=== PATIENT | female | born 1950 | race African-American/Black ===

== ENCOUNTER 2021-11-02 09:01 | Emergency (ER) | payer MEDICARE, BC ==
[~2021-11-02] VITALS: Ht 167.6 cm; Wt 64.0 kg
[2021-11-02] MEDS ORDERED: MORPHINE SULFATE 10 MG/ML CPJ IM ONE (10:00)
[2021-11-02] MEDS ORDERED: KETAMINE HCL 50 MG/ML 10ML IV ONE (11:00)
[2021-11-02] MEDS ORDERED: PROPOFOL 200MG/20ML VIAL IV ONE (11:00)
[2021-11-02] MEDS ORDERED: SODIUM CHLORIDE 0.9% 1,000 ML IV ONE (11:00)
[2021-11-02] MEDS ORDERED: MORPHINE SULFATE 10 MG/ML CPJ IV ONE (12:00)
[2021-11-02] MEDS ORDERED: T3 PO (13:06)
[2021-11-02] MEDS ORDERED: IBUP-2029 MT (13:06)
[2021-11-02 17:40] VITALS: BP 130/80
== END 2021-11-02 15:00 | disposition home or self-care (01) ==
LOC: ER 09:01
DX: S53.125A Posterior dislocation of left ulnohumeral joint, initial encounter (principal); W01.0XXA Fall on same level from slipping, tripping and stumbling without subsequent striking against object, initial encounter; Y93.89 Activity, other specified; Y92.830 Public park as the place of occurrence of the external cause
CPT/HCPCS: 73070; 73080; 96361; 96372; 96374; 96375; 99284; J2270; J2704; J3490; J7030; A4565